=== PATIENT | male | born 1940 | race Caucasian/White ===

== ENCOUNTER 2018-11-22 09:27 | Emergency (ER) | payer MEDICARE, BC ==
[2018-11-22] MEDS ORDERED: PROPARACAINE 0.5% OPHTH DROPS 15 ML BTL LEFT EYE STA (10:16)
--- NOTE | 2018-11-22 10:17 | ED ---
General Adult HPI - General Chief complaint: Eye Problems Stated complaint: FB in eye Time Seen by Provider: 11/22/18 10:06 Source: patient, RN notes reviewed Mode of arrival: ambulatory Limitations: no limitations - History of Present Illness Initial comments: Patient 78-year-old male presented to the emergency room today with a chief complaint of foreign body sensation to the left eye. He does not that yesterday he was eating some toast. He feels like something popped into his left eye. He states had a foreign body sensation since that time. He does admit to increased watery and clear drainage. Patient denies any frequent or symptoms. States unsure of his tetanus status. Patient denies any recent fever, chills, shortness of breath, chest pain, back pain, abdominal pain, nausea or vomiting, numbness or tingling, dysuria or hematuria, constipation or diarrhea, headaches, or any other complaints. - Related Data Home Medications Medication Instructions Recorded Confirmed Aspirin EC [Ecotrin] 325 mg PO DAILY PRN 11/22/18 11/22/18 [id number] 2 tab PO Q4HR PRN 11/22/18 11/22/18 [Excedrin] Previous Rx's Medication Instructions Recorded Tobramycin 0.3% Ophth Soln [Tobrex 2 drop LEFT EYE Q4H 7 Days ml 11/22/18 0.3% Ophth Soln] Allergies Allergy/AdvReac Type Severity Reaction Status Date / Time No Known Allergies Allergy Verified 11/22/18 10:04 Review of Systems ROS Statement: Those systems with pertinent positive or pertinent negative responses have been documented in the HPI. ROS Other: All systems not noted in ROS Statement are negative. Past Medical History Additional Past Medical History / Comment(s): Cataracts History of Any Multi-Drug Resistant Organisms: None Reported Additional Past Surgical History / Comment(s): Colon Past Psychological History: No Psychological Hx Reported Smoking Status: Never smoker Past Alcohol Use History: None Reported Past Drug Use History: None Reported General Exam - General Exam Comments Initial Comments: General: The patient is awake and alert, in no distress, and does not appear acutely ill. Eye: Pupils are equal, round and reactive to light, extra-ocular movements are intact. No nystagmus. Mild redness to the left conjunctiva with watery discharge. Ears, nose, mouth and throat: There are moist mucous membranes and no oral lesions. Neck: The neck is supple, there is no tenderness or JVD. Musculoskeletal: Normal ROM, no tenderness. Strength 5/5. Neurological: A&O x 3. CN II-XII intact, There are no obvious motor or sensory deficits. Coordination appears grossly intact. Speech is normal. Skin: Skin is warm and dry and no rashes or lesions are noted. Psychiatric: Cooperative, appropriate mood & affect, normal judgment. Limitations: no limitations Course Vital Signs 11/22/18 09:34 Temperature 97.5 F L Pulse Rate 78 Respiratory 20 Rate Blood Pressure 155/90 O2 Sat by Pulse 99 Oximetry Procedures - Procedures Initial comment: Patient's left eye was anesthetized with proparacaine drops. He does admit that this relieved his symptoms. Eye was stained with forcing it checked with Wood's lamp revealing a large corneal abrasion to the 4 o'clock position. Lids were inverted and no foreign body on exam. Medical Decision Making - Medical Decision Making Patient's eye was stained to the emergency room revealing a large corneal abrasion. Will be started on antibiotic drops. 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 Patient does admit that his tetanus was updated 4 years ago and does not need tetanus today. Patient will be discharged home advised return for any other concerns. Disposition Clinical Impression: Corneal abrasion Disposition: HOME SELF-CARE Condition: Good Instructions (If sedation given, give patient instructions): Corneal Abrasion (ED) Additional Instructions: Please See your director of strategic partnerships over tomorrow as discussed. Please use antibiotic drops as prescribed. Return here to the emergency room for any symptoms increase worsen. He may use artificial tears without preservative as needed for comfort. Prescriptions: Tobramycin 0.3% Ophth Soln [Tobrex 0.3% Ophth Soln] 2 drop LEFT EYE Q4H 7 Days ml Is patient prescribed a controlled substance at d/c from ED?: No Referrals: None,Stated [Primary Care Provider] - 1-2 days James Molina MD [STAFF PHYSICIAN] - 1-2 days Time of Disposition: 11:22
[2018-11-22 11:45] VITALS: BP 160/92; PULSE 76; RESP 18; TEMP 97.4
== END 2018-11-22 11:45 | disposition home or self-care (01) ==
LOC: EC 09:27
DX: S05.02XA Injury of conjunctiva and corneal abrasion without foreign body, left eye, initial encounter (principal); Z86.69 Personal history of other diseases of the nervous system and sense organs; X58.XXXA Exposure to other specified factors, initial encounter
CPT/HCPCS: 99283